=== PATIENT | female | born 1965 | race Hispanic/Latino ===

== ENCOUNTER 2016-08-19 17:07 | Emergency (ER) | payer SELFPAY ==
[~2016-08-19] VITALS: Ht 154.9 cm; Wt 164.0 kg
[~2016-08-19 17:07] MED LIST: AZIT250T2 PO; CITA20TA PO; HYDR1TAB69 PO
[2016-08-19 17:13] VITALS: BP 149/81; PULSE 81; RESP 14; O2SAT 98
--- NOTE | 2016-08-19 18:18 | ED.REPORT ---
HPI-Extremity Problem Upper Date of Service Aug 19, 2016 ED Provider: Doc,Ed MD History of Present Illness: left 4th finger ring is tight. meron is primary care. normally healthy, started swelling last night while doing dishes Nursing Notes Stated Complaint: RING STUCK ON SWOLLEN FINGER Chief Complaint: Extremity Trauma Nursing Notes Reviewed: Yes Allergies: Coded Allergies: No Known Allergies (Unverified Allergy, Unknown, 12/25/13) Scheduled Azithromycin (Azithromycin) 250 Mg Tablet 250 MG PO DAILY Outpatient use Citalopram-Expunged Drug, Do Not Renew! (Citalopram-Expunged Drug, Do Not Renew! ) 20 Mg Tablet 20 MG PO DAILY Scheduled PRN Hydrocod/APAP-Expunged, Do Not Renew! (VICODIN-Expunged Drug, Do Not Renew) 1 Tab Tab 1 TAB PO PRN General Time Seen by MD: 18:18 Chief Complaint Finger injury left 4 Hx Obtained From: Patient Onset Occurred: Yesterday Past Medical History Past Medical History Bipolar Reports: Cancer Past Surgical History Right eye surgery in approximately 2003 to remove growth Reports: Hysterectomy Smoking History Never Smoker Social History Alcohol Use: "Social" Drug Use: Denies drug use Other Social History: Occupation works at [employer], lives with daughter and her family Ambulatory Status Independent Review of Systems Basic Review of Systems Eyes: Vision NL, No discharge ENT: Hearing NL, No pain, No nasal congestion, No pharyngeal pain Respiratory: No shortness of breath, No cough, No wheeze Cardiovascular: No chest pain, No dyspnea on exertion, No orthopnea, No parox noct dyspnea, No palpitations GI: No abdominal pain, No anorexia, No nausea, No vomiting : No dysuria, No frequency Hematologic: No bleeding, No bruising Endocrine: No cold intolerance, No heat intolerance, No weight gain, No weight loss Allergy / Immune: No allergy Psychiatric: Normal thought content Physical Exam Initial Vital Signs Vital Signs (First) Date Time Temp Pulse Resp B/P Pulse Ox O2 Delivery O2 Flow Rate FiO2 08/19/16 17:13 36.4 81 14 149/81 98 Room Air Initial VS: Reviewed, Vital signs normal General/Constitutional: Well-developed, Well-nourished Head / Eyes: Atraumatic, Normocephalic, PERRL ENT: Mucous membranes moist, Conjunctiva normal, No scleral icterus Neck: Supple, Non-tender, Full range of motion Respiratory: Breath sounds normal, Clear to auscultation, No respiratory distress Cardiovascular: Regular rate & rhythm, Heart sounds normal, Intact distal pulses Abdomen / GI: Soft, Non-tender, No guarding, No rebound, No distention Back: No CVA tenderness Lymphatic: No lymphadenopathy Lower Extremities: Vascular intact, Neuro intact, No swelling, No tenderness Skin: Warm, Dry, No cyanosis Neurologic: Alert, Oriented, Nonfocal Psychiatric: Mood/affect normal, Behavior normal, Normal thought content General/Constitutional: Awake, Alert, No acute distress, Well appearing, Well developed Respiratory / Chest: Atraumatic, Breath sounds NL, Breath sounds = bilat, No respiratory distress Cardiovascular: Heart rate NL, Regular rhythm, Heart sounds NL, No gallop Upper Extremity / MS: Atraumatic, Inspection NL, Full range of motion, No swelling left 4 th finger has ring that is too tight. finger has mild swelling. has full range of motion. cap refill less than 3 sec Discharge & Departure Impression: Primary Impression: Ring or other jewelry causing external constriction, initial encounter Disposition: Home Additional Instructions: The ring has been removed. I am sorry this was so tight on your finger. You can have the ring repaired and made larger if you desire. Please follow with primary care as needed. Referrals: [facility] (PCP) EDSupervising Provider for APC: Brandon Maldonado MD copies to: [facility] Awilda Liao Aug 19, 2016 18:18
[2016-08-19 18:49] VITALS: BP 134/84; O2SAT 95
== END 2016-08-19 18:50 | disposition home or self-care (01) ==
LOC: SED 17:07
DX: S60.445A External constriction of left ring finger, initial encounter (principal); W49.04XA Ring or other jewelry causing external constriction, initial encounter; Y93.G1 Activity, food preparation and clean up; Y92.9 Unspecified place or not applicable; Y99.8 Other external cause status